=== PATIENT | female | born 1985 | race Caucasian/White ===

== ENCOUNTER 2020-07-24 12:26 | Outpatient (CLI) | payer OTHER, SELFPAY ==
--- NOTE | ~2020-07-24 | MR_ITS ---
EXAMINATION: MR brain/brain stem wo/w con EXAM DATE: 07/24/2020 14:46 INDICATION: Multiple sclerosis. TECHNIQUE: Magnetic resonance imaging (MRI) of the brain/brain stem obtained without contrast. Sagit neris T1, axial diffusion, gradient echo (T2*), T1, T2, FLAIR sequences obtained. Patient was then inj ected with 11 cc intravenous Multihance contrast. Axial and coronal postcontrast T1 weighted sequence s obtained. Comparison is made to prior examination from 05/26/2019. FINDINGS: There are approximately 15 scattered periventricular signal hyperintensities as previously seen. One of these on the right side is less well visualized on this examination, otherwise no interv al change. Small pontine signal abnormalities are best visualized on the cervical spine obtained at s raudel time. There are no areas of restricted diffusion to suggest acute infarction. There is no acute hemorrhage seen on the T2*, a hemosiderin sensitive sequence. No intraparenchymal brain mass. The ventricles a re normal in size. There are no extra-axial collections. Flow voids are seen in the cerebral arteri es on the T2-weighted sequences consistent with their expected patency. The orbits are unremarkable. Soft tissue is unremarkable. There are no areas of abnormal enhancement on the postcontrast image s. IMPRESSION: Scattered white matter lesions consistent with multiple sclerosis, one of which less well visualized. No enhancing or new lesions. Reviewed, dictated and finalized at location B. DIAN BACON TIER
--- NOTE | ~2020-07-24 | MR_ITS ---
EXAMINATION: MR cervical spine wo/w con EXAM DATE: 07/24/2020 14:46 INDICATION: Multiple sclerosis. TECHNIQUE: Multi-sequential, multiplanar MR images of the cervical spine were obtained without contra st. Axial T2, axial T2 MERGE sequence. Sagittal T1, T2, T2 fat saturation images also obtained. Axi al T1 weighted sequence. Patient was then injected with 11 mL Multihance intravenous contrast and re imaged. Postcontrast axial and sagittal T1-weighted fat saturation sequences were obtained. Compar jarrod is made to prior examination from 05/16/2017. FINDINGS: There is ill-defined increased cervical spinal cord T2 signal from C4 to C7 without expans ion. Only mild central canal stenosis at C5-6 and 6-7 from mild disc bulges. Several small pontine si gnal abnormalities reidentified, also stable. There is mild cervical arthropathy. No significant cent ral canal or neural foraminal stenosis. There are no suspicious marrow signal abnormalities. Cervicom edullary junction is normal in appearance. There are no areas of abnormal enhancement on the post c ontrast images. IMPRESSION: Stable cervical cord, pontine signal abnormalities consistent with quiescent multiple scl erosis. Mild spondylosis. Reviewed, dictated and finalized at location B. LEAF LAYER IMPRESSION: Stable cervical cord, pontine signal abnormalities consistent with quiescent multiple sclerosis. Mild spondylosis.
[2020-07-24 13:29] LABS: Estimated Glomerular Filt Rate > 60
== END 2020-07-24 12:27 | disposition home or self-care (01) ==
LOC: ANHIMG 12:33
PROVIDERS: PCP Internal Medicine
DX: G35 Multiple sclerosis (principal); M47.812 Spondylosis without myelopathy or radiculopathy, cervical region
CPT/HCPCS: 70553; 72156; A9577

== ENCOUNTER → 2022-10-16 11:32 | Outpatient (CLI) | payer OTHER, SELFPAY ==
--- NOTE | ~2022-10-16 | CT_ITS ---
EXAMINATION: CT sinus wo con DATE: 10/16/2022 11:45 INDICATION: Chronic sinusitis TECHNIQUE: Computed tomography (CT) of the paranasal sinuses was performed without contrast. Iterativ e reconstruction technique was employed. Exam dose: 257.01 mGy-cm total exam DLP. COMPARISON: None FINDINGS: There is leftward bowing of the nasal septum. There is prominent soft tissue thickening of the inferior nasal turbinates. The middle nasal turbinates are severely swollen and ankle by soft tissue swelling, with complete opa cification of right and nearly complete opacification of left middle meatuses. There is complete opac ification of both ostiomeatal units. There is complete or nearly complete opacification of the bilateral frontal sinuses, ethmoid air cell s, maxillary sinuses and sphenoid sinuses. There is a small minority of opacified mastoid air cells bilaterally. Otherwise the mastoid air cells are normally developed and aerated. IMPRESSION Pansinusitis Complete opacification of the ostiomeatal units Virtually complete opacification of the middle meatuses, severe soft tissue swelling of the middle na kurt turbinates Prominent soft tissue swelling of inferior nasal turbinates Mild leftward deviation of nasal septum Opacification of a minority of mastoid air cells bilaterally Reviewed, dictated and finalized at Location A. Reviewed, dictated and finalized at location A. IMPRESSION Pansinusitis Complete opacification of the ostiomeatal units Virtually complete opacification of the middle meatuses, severe soft tissue swe lling of the middle nasal turbinates Prominent soft tissue swelling of inferior nasal turbinates Mild leftward deviation of nasal septum Opacification of a minority of mastoid air cells bilaterally
== END ==
PROVIDERS: PCP Internal Medicine; Visit Provider Clinical Nurse Specialist
DX: J01.40 Acute pansinusitis, unspecified (principal); J34.3 Hypertrophy of nasal turbinates; J34.2 Deviated nasal septum
CPT/HCPCS: 70486

== ENCOUNTER 2022-12-01 00:24 | Day surgery (SDC) | payer OTHER, SELFPAY ==
[2022-11-23 15:13] VITALS: BMI 19.4
--- NOTE | 2022-11-23 15:14 | SUR.PREOP ---
Report to the Outpatient Waiting Room, entrance under the green pavilion located off [facility], at time _0915 on date 12/01/22 . Planned Procedure Time: _1115. Time changes happen often and if your time is changed the preop area will call you the afternoon before. - You and your visitor will be asked to self-screen and do not enter if you have any COVID symptoms. - A mask is optional within the hospital at this time. Patients may have clear liquids (water, carbonated beverages, clear teas, apple juice) until 3 hours prior to surgery with a maximum of 20 ounces. - No food from midnight until time of surgery - Infants may have breast milk until 4 hours before surgery, formula 6 hours prior to surgery. - Children will be allowed to drink immediately following surgery. If applicable, please bring a bottle or sippy cup to assist with drinking. Juice, water, soda, and popsicles are readily available. For infants on formula, please bring formula the day of surgery. Pacifiers are allowed. Take the following medications with a SIP of water the morning of surgery: _gabapentin DO NOT STOP ANY OF YOUR OTHER PRESCRIPTION MEDICATIONS PRIOR TO SURGERY ?EXCEPT THE FOLLOWING Medications to discontinue per physician n/a Date to take last dose___n/a Please no make-up, nail turkmen, hairspray, perfume, deodorant, or body powder the day of surgery. No jewelry (including any body piercings) or valuables the day of surgery, leave them at home. Please take a shower or bath the night before, or the morning of, surgery with an antibacterial soap. Wear comfortable, loose fitting clothing. Children are encouraged to wear pajamas. - Jewelry must be removed prior to entering the operating room. Rings and piercings that are not removed may be cut off. - The hospital will not accept responsibility for valuables. - Please leave all valuables, including medications, at home the day of surgery. If you are going home after surgery, a licensed river driver must drive you home. - NO public transportation without another adult if you receive anesthesia. - We recommend that an adult stay with you for 24 hours following discharge. - We also recommend that you do not drive, make important decision, drink alcoholic beverages, or take any drugs that were not prescribed by your health care provider for at least 24 hours after your discharge time. For Pediatric surgeries, we recommend two adults accompany the child home. Follow any additional instructions given to you from your surgeon. If you or anyone in your household have experienced Covid symptoms in the past week, please notify your surgeon or the nurse liaison at the phone number below for possible testing. Telephone instructions given to roro franco and asked if any additional questions and then verbalized understanding. Patient advised to call surgeon office or pre surgery nurse liaison [phone] if any additional questions.
--- NOTE | 2022-11-30 17:27 | PM.IMHP ---
H&P: HPI History of Present Illness Date/Time: 11/30/22 17:27 Chief Complaint: Chronic sinusitis septal deviation turbinate hypertrophy Narrative: planned procedures Review of Systems Review of Systems: All systems reviewed & are unremarkable except as noted in HPI and below [facility] Past Medical History Medical History Multiple sclerosis Family History Family History Grandparent Family history of multiple sclerosis Social History Social History (Updated 11/18/22 @ 15:56 by Evie Sanchez CMA) Smoking status: Never smoker Alcohol intake: never Alcohol use details: rarely Substance use: never Lack of Transportation: No Lack of Food: Never True Current Housing: I Have Housing Concerned About Future Housing: No Difficulty Paying Gas/Electric Bills: No Difficulty Paying for Meds: No Currently Unemployed: No Education: Associate Degree Difficulty w/ Childcare or Family Care: No Living arrangements: with family Occupation/Education: occupation Gender identity (if verbalized by the patient): Female Spiritual care concerns: No Meds Home Medications and Allergies Home Medications Medication Instructions Recorded Confirmed Type ocrelizumab 30 mg/mL intravenous 300 mg IV .twice a year 03/13/21 11/23/22 History solution (Ocrevus) cholecalciferol (vitamin D3) 50 50 mcg PO MONTHLY 08/06/22 11/23/22 History mcg (2,000 unit) capsule gabapentin 100 mg capsule 100 mg PO TID 08/12/22 11/23/22 History budesonide 0.25 mg/2 mL suspension 0.25 mg (2 mL) irrigation BID #120 10/30/22 11/23/22 Rx for nebulization mL mupirocin 2 % topical ointment 1 applic topical .COMPLEX #66 grams 10/30/22 11/23/22 Rx doxycycline hyclate 100 mg capsule 100 mg PO Q24H #4 caps 11/26/22 11/26/22 Rx prednisone 5 mg tablet 5 mg PO .daily #4 tabs 11/26/22 11/26/22 Rx Allergies Allergy/AdvReac Type Severity Reaction Status Date / Time No Known Allergies Allergy Verified 11/23/22 14:52 Exam Narrative: inflamed sinuses septal deviation turbinate hypertrophy Assessment and Plan Assessment and plan (1) Nasal congestion: Code(s): R09.81 - Nasal congestion Status: Acute Assessment and Plan: plan OR image guided endoscopic bilateral maxillary antrostomies bilateral total ethmoidectomies bilateral frontal sinusotomies bilateral sphenoidotomies all with tissue removal essentially. Likely/ possible endoscopic assisted septoplasty likely possible turbinate reduction with outfracture. Likely possible bilateral middle turbinectomies. I would say least 3 hours.Risks were discussed including bleeding infection damage to surrounding structures need for further procedures to blindness change in vision CSF leak brain brain damage septal perforation need for plastic splints need for narcotics inherent risks of narcotic use postoperative bleeding 1% he for time off work need for time off school damage to any structure of the clavicles by myself damage to any structure the induction and maintenance of anesthesia including the vocal cords paralysis. (2) Nasal obstruction: Code(s): J34.89 - Other specified disorders of nose and nasal sinuses Status: Acute (3) Nasal septal deviation: Code(s): J34.2 - Deviated nasal septum Status: Acute (4) Hypertrophy of both inferior nasal turbinates: Code(s): J34.3 - Hypertrophy of nasal turbinates Status: Acute (5) Chronic sinusitis: Code(s): J32.9 - Chronic sinusitis, unspecified Status: Acute
[2022-12-01] VITALS (9 sets, daily range): BP systolic 117–135; BP diastolic 64–79; PULSE 60–90; RESP 12–18; TEMP 36.4–36.6; O2SAT 98–100
--- NOTE | 2022-12-01 07:17 | WPDHPUPDATE1 ---
History and Physical Update Update Date/Time: 12/01/22 07:17 History and Physical has been reviewed, including an updated exam of the patient. There are NO changes in the patient's condition. Risks, benefits, and alternatives have been discussed and questions answered. Patient agrees to proceed with procedure.
[2022-12-01] MEDS: LACTATED RINGERS 1,000 ML 30 ML IV CONT ×2 (09:50→14:42)
[2022-12-01] MEDS: ACETAMINOPHEN 500 MG TABLET 1000 MG PO (09:52)
--- NOTE | 2022-12-01 11:05 | WPDANESEPPF ---
Anes - Initial Pre Proc Eval Procedure: Operation Date: 12/01/22 11:15 Proposed Procedures p Septoplasty - Yvan Damon MD s Image Guided Bilateral Maxillary Antrostomy with Tissue Removal, Bilateral Total Ethmoidectomy, Bilateral Sphenoidotomy with Tissue Removal, Bilateral Frontal Sinusotomy, Bilateral Inferior Turbinectomy with Outfracture - Yvan Damon MD Date/Time: 12/01/22 11:05 Surgeon: Yvan Damon MD Pre Op Diagnosis: chronic sinusitis Patient Data Age: 37 Gender: F Height: 1.68 m Weight: 52.8 kg Last Vital Signs Temp 36.6 C 12/01/22 09:25 Pulse 90 12/01/22 09:25 Resp 16 12/01/22 09:25 BP 121/70 12/01/22 09:25 Pulse Ox 100 12/01/22 09:25 O2 Del Method Room Air 12/01/22 09:25 Allergies Allergy/AdvReac Type Severity Reaction Status Date / Time No Known Allergies Allergy Verified 12/01/22 09:32 Home Medications Medication Instructions Recorded Confirmed Type ocrelizumab 30 mg/mL intravenous 300 mg IV .twice a year 03/13/21 11/23/22 History solution (Ocrevus) cholecalciferol (vitamin D3) 50 50 mcg PO MONTHLY 08/06/22 11/23/22 History mcg (2,000 unit) capsule gabapentin 100 mg capsule 100 mg PO TID 08/12/22 11/23/22 History budesonide 0.25 mg/2 mL suspension 0.25 mg (2 mL) irrigation BID #120 10/30/22 11/23/22 Rx for nebulization mL mupirocin 2 % topical ointment 1 applic topical .COMPLEX #66 grams 10/30/22 11/23/22 Rx doxycycline hyclate 100 mg capsule 100 mg PO Q24H #4 caps 11/26/22 11/26/22 Rx prednisone 5 mg tablet 5 mg PO .daily #4 tabs 11/26/22 11/26/22 Rx Patient hx anesthesia problems: none Family hx anesthesia problems: none Results Review: All pre-operative results and documents have been reviewed as part of the pre-operative evaluation. [facility] Past Medical History Medical History Multiple sclerosis Family History Family History Grandparent Family history of multiple sclerosis Social History Social History Smoking status: Never smoker Alcohol intake: never Alcohol use details: rarely Substance use: never Lack of Transportation: No Lack of Food: Never True Current Housing: I Have Housing Concerned About Future Housing: No Difficulty Paying Gas/Electric Bills: No Difficulty Paying for Meds: No Currently Unemployed: No Education: Associate Degree Difficulty w/ Childcare or Family Care: No Living arrangements: with family Occupation/Education: occupation Gender identity (if verbalized by the patient): Female Spiritual care concerns: No Anes - Eval Final PreProcedure Day of Procedure 12/01/22 11:05 Patient weight: normal Heart: regular rate and rhythm Lungs: clear to auscultation Airway: Mallampati scale class 1 Neurological: alert and oriented Last oral intake: >/= 8 hours ASA classification: II Emergent: no Anesthetic plan: proceed Anesthesia type and monitoring: general ETT and standard monitoring Results Review: All pre-operative results and documents have been reviewed as part of the pre-operative evaluation. Informed Consent: The patient's anesthetic plan and its attendant risks and benefits were discussed with the patient/family/POA. Questions were solicited and answers provided to the satisfaction of the patient/family/POA.
[2022-12-01] MEDS: ceFAZolin 2 GM/D5W 50 ML 2 GM/50 ML BAG IVPB (11:42)
[2022-12-01] MEDS: OXYMETAZOLINE HCL 0.05% NAS 15 ML BTL (*BKC) 1 SPRAY NASAL (12:23)
--- NOTE | 2022-12-01 12:42 | SUR.OPER ---
Culture taken from Left Maxillary Sinus
[2022-12-01] MEDS: MUPIROCIN 2% OINT 22 GM TUBE 1 APPLIC EACH NARE (13:58)
[2022-12-01] MEDS: LIDO 1%/EPINEPHRINE 1:100,000 50 ML VIAL INFILTRATE (14:29)
--- NOTE | 2022-12-01 15:13 | P.OP_ITS ---
Procedure Note - Detailed Date of Procedure 12/01/22 Pre-op Diagnosis chronic sinusitisA, nasal congestion, nasal obstruction, septal deviation, turbinate hypertrophy Post-op Diagnosis Same Procedure Performed endoscopic assisted septoplasty bilateral inferior turbinate submucosal reduction with outfracture image guided endoscopic bilateral maxillary antrostomies without tissue removal total ethmoidectomies sphenoidotomies frontal sinusotomies all without tissue removal bilateral middle turbinectomies. Surgeon Yvan Damon MD Anesthesia General Indications See above Findings obstructive high septal deviation. Corrected obstructive middle turbinates sca rred over these removed purulence the bilateral maxillary sinuses edematous infected tissue in the ethmoids sphenoids. And frontals. Description of Procedure Patient identified consent verified. Patient brought operating. Time-out performed. General anesthesia induced. Endotracheal tube secured. Patient prepped prepped draped position. Procedure confirmed. Second time-out performed. Afrin-soaked pledgets placed in bilateral nasal passages allowed to sit for 5 minutes. Image guidance initiated and confirmed. 0 degree endoscope utilized. Afrin-soaked pledgets removed. Septal deviation noted total full 13 cc 1% lidocaine 1 100,000 parts epinephrine injected bilateral nasal septum middle turbinates which were scarred over and heads of inferior turbinates Rafael incision made left-sided nasal septum left nasal septal flap elevated 7 Mongolian suction osteotome utilized to cross over right nasal septal flap elevated deviated septum removed combination Olegario Mcgrath forceps Lyndsey forceps and osteotome. Eleanor incision closed with interrupted 5 0 fast gut sutures. Turbinates reduced in submucosal plane inferiorly inferior turbinates with microdebrider with inferior turbinate blade. They were then outfractured. The head were cauterized slightly to slow any bleeding mulberry tips cauterized as well. Middle turbinates resected with straight through cut stump cauterized with Bovie suction electrocautery setting of 10 and 15. Maxillary antrostomies performed with double ball tip probe image guidance straight through cut backbiter. As well as microdebrider. All instruments were image guided. By all instruments and the microdebrider in suction. These were than the purulence was cultured. Total ethmoidectomies performed with image guidance Kerrison micro debrider straight through cut. Great care was taken to not injure the orbit or skull base. All the partitions removed from orbit to skull base to se ptum. Sphenoidotomies performed with 1 Kerrison image guidance sphenoid punch and 3 Kerrison. Optic nerve carotid arteries visualize not injured. Back to front skull base partition removal was performed with Kerrison. Frontal sinusotomies performed with image guidance 70 degree scope 70 degree image guided suction draft instruments and hose min punch. Nova pack was placed bilaterally completely inflated with sterile normal saline. Ann splints were then placed bilaterally and sutured anteriorly using 3 0 mattress nylon suture. Total blood loss about 75 cc. I performed all dictated portions of procedure. There no complications. Care the patient given Anesthesiology. Patient taken to PACU. Estimated Blood Loss -75.0 Drains No Packing Yes (novapak) Pathology None sent Complications No immediate complications Condition Stable Disposition PACU [facility] Billing Surgery - Charge Forward: Surgery Billing
[2022-12-01] MEDS: oxyCODONE HCL (*CRX) 5 MG TAB IR PO (16:05)
== END 2022-12-01 17:25 | disposition home or self-care (01) ==
PROVIDERS: PCP Internal Medicine; Visit Provider Otolaryngology
PROC: (CPT 30520; principal; 2022-12-01 11:15)
PROC: (CPT 30999; 2022-12-01 11:15)
DX: J32.9 Chronic sinusitis, unspecified (principal); J34.2 Deviated nasal septum; J34.3 Hypertrophy of nasal turbinates; J34.89 Other specified disorders of nose and nasal sinuses; R09.81 Nasal congestion; G35 Multiple sclerosis; Z79.51 Long term (current) use of inhaled steroids; Z79.620 Long term (current) use of immunosuppressive biologic
CPT/HCPCS: 30999; 31253; 31287; 31256; 61782; 30520; 30140; 87070; 87075; 87076; 87205; A9270; J0690; J1100; J1170; J2250; J2405; J2704; J2710; J3010; J7040; J7120

== ENCOUNTER → 2023-05-03 12:10 | Outpatient (CLI) | payer OTHER, SELFPAY ==
--- NOTE | ~2023-05-03 | XR_ITS ---
EXAMINATION: [id number] DATE: 05/03/2023 13:35 INDICATION: Pain in unspecified foot. TECHNIQUE: 4 views of left foot including standing views were obtained. COMPARISON: None. FINDINGS: There is mild valgus. No fracture. There is mild osteoarthritis of first metatarsophalangea l joint. IMPRESSION: 1. Mild hallux valgus. 2. Mild osteoarthritis of first metatarsophalangeal joint. Reviewed, dictated and finalized at location A.
== END ==
PROVIDERS: PCP Clinical Nurse Specialist; Visit Provider Clinical Nurse Specialist
DX: M79.672 Pain in left foot (principal); M20.12 Hallux valgus (acquired), left foot; M19.072 Primary osteoarthritis, left ankle and foot
CPT/HCPCS: 73630

== ENCOUNTER 2025-01-06 07:14 | Outpatient (CLI) | payer OTHER, SELFPAY ==
--- NOTE | ~2025-01-06 | MM_ITS ---
EXAMINATION: MM screening caty BI w dian HISTORY: Screening TECHNIQUE: Craniocaudal and mediolateral oblique 3-D tomosynthesis images were obtained and synthetic 2-D images were generated. CAD analysis was submitted and interpreted. COMPARISON: No prior mammogram is available for comparison at this institution. BREAST PARENCHYMAL COMPOSITION: Dense: The breasts are extremely dense, which lowers the sensitivity of mammography. FINDINGS: There are scattered asymmetries of the right breast. There are punctate clustered calcifica tions in the upper central aspect of the right breast, posterior third. There is no evidence for danielle gnancy in the left breast. IMPRESSION: 1. Right breast asymmetries with clustered calcifications. 2. Additional mammographic views and possible breast ultrasound are recommended. BI-RADS Category 0: Incomplete: Needs additional imaging evaluation. Reviewed, dictated and finalized at location A. IMPRESSION: 1. Right breast asymmetries with clustered calcifications. 2. Additional mammographic views and possible breast ultrasound are recommended . BI-RADS Category 0: Incomplete: Needs additional imaging evaluation.
== END 2025-01-06 07:15 | disposition home or self-care (01) ==
LOC: MICIMG 07:26
PROVIDERS: PCP Clinical Nurse Specialist; Visit Provider Nurse Practitioner
DX: Z12.31 Encounter for screening mammogram for malignant neoplasm of breast (principal); N64.89 Other specified disorders of breast
CPT/HCPCS: 77063; 77067

== ENCOUNTER 2025-01-31 08:10 | Outpatient (CLI) | payer OTHER, SELFPAY ==
--- NOTE | ~2025-01-31 | MMUS_ITS ---
EXAMINATION: MM diagnostic caty RT w dian, US breast RT complete HISTORY: Follow-up breast asymmetries and right breast calcifications. TECHNIQUE: Additional 3-D tomosynthesis images of the right breast were performed and synthetic 2-D i mages were generated. CAD analysis was submitted and interpreted. High resolution complete right shahzad st ultrasound was performed. COMPARISON: 01/06/2025 BREAST PARENCHYMAL COMPOSITION: Dense: The breasts are extremely dense, which lowers the sensitivity of mammography. FINDINGS: MAMMOGRAPHIC FINDINGS: There are benign-appearing right breast calcifications which layer on medial lateral view and MLO vie w, consistent with benign fibrocystic changes. No discrete mass or architectural distortion. ULTRASOUND: Complete US of all 4 quadrants of the right breast/s and retroareolar region was reviewed. At 12:00, 4 cm from the nipple there is an oval hypoechoic parallel oriented mass with circumscribed margins me asuring 10.3 x 1.2 x 0.6 cm. No significant posterior features or internal vascularity. No other mass es identified. IMPRESSION: 1. Probable benign right breast mass at 12:00, 4 cm from the nipple measuring 1.3 cm maximum dimensio n. BI-RADS CATEGORY 3-PROBABLY BENIGN FINDING RECOMMENDATION: 6 month follow-up Limited right breast ultrasound recommended. 2. Reviewed, dictated and finalized at location A. IMPRESSION: 1. Probable benign right breast mass at 12:00, 4 cm from the nipple measuring 1 .3 cm maximum dimension. BI-RADS CATEGORY 3-PROBABLY BENIGN FINDING RECOMMENDATION: 6 month follow-up Limited right breast ultrasound recommended. 2.
== END 2025-01-31 08:11 | disposition home or self-care (01) ==
LOC: MICIMG 08:12
PROVIDERS: PCP Clinical Nurse Specialist; Visit Provider Obstetrics & Gynecology Gynecology
DX: R92.8 Other abnormal and inconclusive findings on diagnostic imaging of breast (principal)
CPT/HCPCS: 76641; 77061; 77065; G0279

== ENCOUNTER 2025-07-16 07:46 | Outpatient (CLI) | payer OTHER, SELFPAY ==
--- NOTE | ~2025-07-16 | MR_ITS ---
EXAMINATION: MR cervical spine wo/w con DATE: 07/16/2025 09:39 INDICATION: Multiple sclerosis. TECHNIQUE: Magnetic resonance imaging (MRI) of the cervical spine was performed without and with 11 mL MultiHance intravenous contrast. COMPARISON: Cervical spine MRI 07/24/2020 FINDINGS: Alignment is normal. Vertebral body heights are normal. There is moderately decreased disc height at C5-C6. There are multiple lesions of increased T2-weighted signal intensity in the spinal cord. None of the lesions enhance. The following disc levels are specifically discussed: C2-C3: The disc does not extend beyond the endplate margin. There is no uncovertebral joint osteoarthritis. There is mild bilateral facet joint osteoarthritis. There is no neural foraminal stenosis. There is no central canal stenosis. C3-C4: There is a central protrusion. There is mild bilateral uncovertebral joint osteoarthritis. There is mild bilateral facet joint osteoarthritis. There is no neural foraminal stenosis. There is mild central canal stenosis. C4-C5: There is a central protrusion. There is mild bilateral uncovertebral joint osteoarthritis. There is no facet joint osteoarthritis. There is no neural foraminal stenosis. There is mild central canal stenosis. C5-C6: The disc is bulging. There is mild right and severe left uncovertebral joint osteoarthritis. There is mild bilateral facet joint osteoarthritis. There is moderate left neural foraminal stenosis. There is mild central canal stenosis. C6-C7: The disc is bulging. There is moderate right and mild left uncovertebral joint osteoarthritis. There is mild right facet joint osteoarthritis. There is mild bilateral neural foraminal stenosis. There is mild central canal stenosis. C7-T1: There is a central extrusion. There is no uncovertebral joint osteoarthritis. There is mild bilateral facet joint osteoarthritis. There is no neural foraminal stenosis. There is mild central canal stenosis. IMPRESSION: 1. Multiple ill-defined spinal cord lesions, stable from 07/24/2020, consistent with multiple sclerosis. 2. Moderate cervical spondylosis. Reviewed, dictated and finalized at location E. SH MAKER
--- NOTE | ~2025-07-16 | MR_ITS ---
EXAMINATION: MR thoracic spine wo/w con DATE: 07/16/2025 09:40 INDICATION: Multiple sclerosis. TECHNIQUE: Magnetic resonance imaging (MRI) of the thoracic spine was performed without and with 11 mL MultiHance intravenous contrast. COMPARISON: None FINDINGS: Bone alignment is normal. There is mild chronic anterior wedging of T5-T9 vertebral bodies. There is mildly decreased disc height from T3-T4 through T7-T8, moderately decreased disc height at T8-T9, and mildly decreased disc height at T9-T10. At T2-T3, there is a central protrusion with mild central canal stenosis. At T4-T5, there is a central protrusion with mild central canal stenosis. At T8-T9, the disc is bulging with mild central canal stenosis. There is multilevel mild facet joint osteoarthritis. No neural foraminal stenosis. There are multiple ill-defined lesions of increased T2-weighted signal intensity in the thoracic spinal cord. None of the lesions enhance. There is a 14 mm cyst in left kidney. IMPRESSION: 1. Spinal cord lesions, consistent with multiple sclerosis. 2. Mild thoracic spondylosis. Reviewed, dictated and finalized at location E. MY NURSE
--- NOTE | ~2025-07-16 | MR_ITS ---
EXAMINATION: MR brain/brain stem wo/w con DATE: 07/16/2025 09:39 INDICATION: Multiple sclerosis. TECHNIQUE: Magnetic resonance imaging (MRI) of the brain and brainstem was performed without and with 11 mL MultiHance intravenous contrast. COMPARISON: Brain MRI 07/24/2020 FINDINGS: There are greater than 15 total lesions of increased T2-weighted signal intensity in the brain. Of these lesions, approximately multiple are periventricular, multiple are juxtacortical, and one is infratentorial. None of the lesions enhance. Lesions in the right frontal lobe and right frontoparietal region are worsened from 07/24/2020. There is no acute ischemic infarct or intracranial hemorrhage. The ventricles are normal in size. There is mild mucosal thickening in the paranasal sinuses. The orbits are normal. The mastoid air cells are normal. IMPRESSION: 1. White matter lesions in the brain with interval worsening, consistent with multiple sclerosis. Reviewed, dictated and finalized at location E. [facility] [employer] IMPRESSION: 1. White matter lesions in the brain with interval worsening, consistent with m ultiple sclerosis.
--- OUTSIDE RECORDS SUMMARY | 2025-07-16 07:57 | XMS_ITS | Clinical Summary ---
Author Organization [employer] [facility] Address [address] [place] [address] Phone Care Team Providers Care Black Top Paver Operator Name Role Phone Glokuldeep Camacho Mera DO Primary Care Provider Allergies No known active allergies Medications COPAXONE 40 mg/mL Syringe 12/31/2014 Activ e KURVELO 0.15-0.03 mg tablet 01/20/2015 Active omega-3 fatty acids-fish oil 300-1,000 mg Capsule Take by mouth daily. Active Active Problems Problem Noted Date Diagnosed Date Multiple sclerosis 02/07/2015 Family History Relation Name Status Comments Brother Alive Father Alive Mother Alive Sister Alive Social History Tobacco Use Types Packs/Day Years Used Date Smoking Tobacco: Never Alcohol Use Standard Drinks/Week Comments Yes 0 (1 standard drink = 0.6 oz pur e alcohol) Comments Unknown Sex and Gender Information Value Date Recorded Sex Assigned at Not on file Legal Sex Female 11:30 AM CDT Gender Identity Not on file Sexual Orientation Not on file Last Filed Vital Signs Vital Sign Reading Time Taken Comments Blood Pressure 103/68 02/07/2015 8:52 AM CDT Pulse 80 02/07/2015 8:52 AM CDT Temperature - - Respiratory Rate - - Oxygen Saturation - - Inhaled Oxygen Concentration - - Weight 54.4 kg (120 lb) 02/07/2015 8:52 AM CDT Height 167.6 cm (5' 6) 02/07/2015 8:52 AM CDT Body Mass Index 19.37 02/07/2015 8:52 AM CDT Plan of Treatment Health Maintenance Due Date Last Done Comments DTAP/TDAP/TD VACCINES (1 - Tdap) 2003 HEPATITIS B VACCINES (1 of 3 - 19+ 3-dose series) 07/27 HPV/Cotest (21-29) 2005 CERVICAL CANCER SCREENING 2014 HPV/Cotest (30-65) 2014 PAP SMEAR 2014 BREAST CANCER SCREENING 2024 INFLUENZA VACCINE (#1) 2025 HPV VACCINES (No Doses Required) Completed Insurance [employer] CHOICE RX GENERIC COMMERCIAL Commercial RX [employer] (INTERNAL) [facility] RX [employer] [facility] Care Teams Black Top Paver Operator Relationship Specialty Start Date End Date Camacho Maddox DO PCP - General 07/11/15
== END 2025-07-16 07:47 | disposition home or self-care (01) ==
PROVIDERS: PCP Internal Medicine
DX: G35.D Multiple sclerosis, unspecified (principal); M47.892 Other spondylosis, cervical region; M47.894 Other spondylosis, thoracic region
CPT/HCPCS: 70553; 72156; 72157; A9577